=== PATIENT | female | born 1980 | race Caucasian/White ===

== ENCOUNTER 2017-03-25 04:09 | Emergency (ER) | payer MEDICAID | END 2017-03-25 05:46 | disposition home or self-care (01) | LOC: FTE 04:09 | DX: R21 Rash and other nonspecific skin eruption (principal) | CPT/HCPCS: 99284; Z7502 ==

== ENCOUNTER 2017-03-26 16:02 | Emergency (ER) | payer MEDICAID | END 2017-03-26 18:55 | disposition home or self-care (01) | LOC: FTE 16:02 → E/R 18:55 | DX: R21 Rash and other nonspecific skin eruption (principal) | CPT/HCPCS: 99284; Z7502 ==